=== PATIENT | male | born 1995 | race Caucasian/White ===

== ENCOUNTER → 2021-05-08 14:34 | Outpatient (CLI) | payer MEDICARE, SELFPAY ==
[2021-05-08 15:19] LABS: COVID19 -Nasal RAPID Negative (Negative)
== END ==
PROVIDERS: Referring Provider Physician Assistant; Visit Provider Physician Assistant
DX: Z20.822 Contact with and (suspected) exposure to COVID-19 (principal); J02.9 Acute pharyngitis, unspecified
CPT/HCPCS: 87635

== ENCOUNTER → 2021-05-09 10:43 | Outpatient (ROUT) | payer MEDICARE, SELFPAY ==
[2021-05-09 11:14] LABS: COVID19 -Nasal RAPID Negative (Negative)
== END ==
PROVIDERS: Visit Provider Physician Assistant
DX: Z20.822 Contact with and (suspected) exposure to COVID-19 (principal); J02.9 Acute pharyngitis, unspecified
CPT/HCPCS: 87635